=== PATIENT | male | born 1935 | race Caucasian/White ===

== ENCOUNTER 2019-10-16 00:17 | Day surgery (SDC) | payer MEDICARE, SELFPAY ==
[2019-10-02 14:42] VITALS: BMI 24.4
[2019-10-16] MEDS: LACTATED RINGERS 1,000 ML 30 ML IV CONT ×2 (10:15→13:48)
[2019-10-16 10:34] VITALS: BP 131/84; PULSE 63; RESP 16; TEMP 36.4; O2SAT 99
--- NOTE | 2019-10-16 10:47 | WPDANESEPPF ---
Anes - Initial Pre Proc Eval Procedure: Operation Date: 10/16/19 12:00 Proposed Procedures p Repair Left Inguinal Hernia - Gunner Elizabeth MD Date/Time: 10/16/19 10:47 Surgeon: Gunner Elizabeth MD Pre Op Diagnosis: Left Inguinal Hernia Patient Data Age: 84 Gender: M Height: 1.83 m Weight: 78.7 kg Last Vital Signs Temp 36.4 C L 10/16/19 10:34 Pulse 63 10/16/19 10:34 Resp 16 10/16/19 10:34 BP 131/84 10/16/19 10:34 Pulse Ox 99 10/16/19 10:34 Allergies Allergy/AdvReac Type Severity Reaction Status Date / Time No Known Allergies Allergy Unverified 10/16/19 09:56 Home Medications Medication Instructions Recorded Confirmed Type atorvastatin 10 mg tablet 10 mg PO DAILY 09/24/19 10/16/19 History famotidine 20 mg tablet 20 mg PO DAILY 09/24/19 10/16/19 History finasteride 5 mg tablet 5 mg PO DAILY 09/24/19 10/16/19 History oxybutynin chloride 15 mg 15 mg PO DAILY 09/24/19 10/16/19 History tablet,extended release 24 hr tamsulosin 0.4 mg capsule 0.4 mg PO DAILY 09/24/19 10/16/19 History Patient hx anesthesia problems: none Family hx anesthesia problems: none PMFSH Past Medical History Medical History (Updated 10/16/19 @ 10:48 by Rafal Paige MD) Arthritis Gastroesophageal reflux disease History of basal cell cancer neck Hypercholesterolemia Surgical History Surgical History History of hernia surgery Hx of appendectomy Social History Social History Smoking status: Never smoker Alcohol intake: never Gender identity (if verbalized by the patient): Male Anes - Eval Final PreProcedure Day of Procedure 10/16/19 10:47 Patient weight: normal Heart: regular rate and rhythm Lungs: clear to auscultation and normal air movement Airway: Mallampati scale class II Neurological: alert and oriented Last oral intake: >/= 8 hours ASA classification: II Emergent: no Anesthetic plan: proceed Anesthesia type and monitoring: general ETT Informed Consent: The patient's anesthetic plan and its attendant risks and benefits were discussed with the patient/family/POA. Questions were solicited and answers provided to the satisfaction of the patient/family/POA.
--- NOTE | 2019-10-16 11:05 | PM.PROC ---
Procedure Note - Detailed Date of procedure: 10/16/19 Pre-op diagnosis: Left Inguinal Hernia Left inguinal hernia Post-op diagnosis: same (Indirect hernia) Procedure performed: Repair of left inguinal hernia with 8 cm Parietex hernia mesh system Description of procedure: The patient was taken to surgery and IV sedation was administered. The left groin and genitalia were prepped and draped. Proposed incision was marked on the skin. Local was infiltrated into the skin and the deeper subcutaneous tissues. Incision was made and deepened through the subcutaneous. Crossing veins were cauterized and divided. Dissection was carried through Sterling's fascia down to the external oblique aponeurosis. The aponeurosis was exposed as was the external ring. Additional local anesthesia was infiltrated deep to the aponeurosis in the area of the spermatic cord and inguinal canal contents. The aponeurosis was opened laterally and extended medially through the external ring. The leaves of the aponeurosis were dissected free from the spermatic cord. The ileoinguinal nerve was carefully preserved throughout the dissection and was left attached to the spermatic cord. The cord was then mobilized medially on a [place] drain. The cord was dissected back to the internal ring. Dissection was then carried out in the anteromedial spermatic cord. The hernia sac was found and dissected free. The sac was then dissected back to a high dissection. It was dunked into the retroperitoneum. An 8 centimeter Parietex mi'kmaq was chosen. It was folded to form a plug. It was placed in the defect. The edges were sutured to the transversalis fascia with interrupted 3 0 Vicryl suture. The hernia defect was then partially closed with some additional 3 0 Vicryl suture. Patch was then cut to the appropriate size and placed over the inguinal canal floor. The lateral leaves were passed beyond the cord. The cord and ileoinguinal nerve were then laid over the patch. The external oblique aponeurosis was closed with interrupted 3 0 Vicryl suture. Sterling's fascia was closed with interrupted 3 0 Vicryl suture. Four 0 Vicryl subcuticular skin sutures were placed. The skin was closed with a running 4 0 Monocryl skin suture. The wound was dressed with Exofin surgical adhesive. The patient was awakened and taken to recovery in good condition. Sponge and needle counts were correct x2. Implants: 8 cm Parietex Anesthesia: MAC and local (0.5% Marcaine with Exparel) Surgeon: Gunner Elizabeth MD [employer]: Reginald Gibson RN,FA Estimated blood loss (mL): 5 Drains: No Packing: No Pathology: none sent Complications: None Condition: stable Disposition: PACU Findings: Indirect inguinal hernia. No sliding hernia was noted.
--- NOTE | 2019-10-16 12:04 | WPDHPUPDATE1 ---
History and Physical Update Update Date/Time: 10/16/19 12:04 History and Physical has been reviewed, including an updated exam of the patient. There are NO changes in the patient's condition. Risks, benefits, and alternatives have been discussed and questions answered. Patient agrees to proceed with procedure.
[2019-10-16] MEDS: ceFAZolin 2 GM/D5W 50 ML 2 GM/50 ML BAG IVPB (12:20)
[2019-10-16 13:33] VITALS: BP 147/84; PULSE 62; RESP 16; O2SAT 96
[2019-10-16 14:00] VITALS: BP 145/80; PULSE 57; RESP 14
--- NOTE | 2019-10-16 14:09 | SUR.PHASEII ---
1400 talked with son landen,will arrive around 1500 for transportation home.
[2019-10-16 14:30] VITALS: BP 150/85; PULSE 55; RESP 14
--- NOTE | 2019-10-16 14:51 | SUR.PHASEII ---
1430 pt aware need to urinate prior to discharge. drinking water and coffee,iv fluids continue.
[2019-10-16 15:00] VITALS: BP 161/78; PULSE 57; RESP 14
[2019-10-16 15:30] VITALS: BP 169/85; PULSE 53; RESP 14
== END 2019-10-16 15:46 | disposition home or self-care (01) ==
PROVIDERS: PCP Pediatrics; Visit Provider Surgery
PROC: (CPT 49505; principal; 2019-10-16 12:00)
DX: K40.90 Unilateral inguinal hernia, without obstruction or gangrene, not specified as recurrent (principal); E78.00 Pure hypercholesterolemia, unspecified; K21.9 Gastro-esophageal reflux disease without esophagitis; M19.90 Unspecified osteoarthritis, unspecified site
CPT/HCPCS: 49505; A9270; C1781; C9290; J0690; J2405; J2704; J3010; J7120